=== PATIENT | male | born 1990 | race Caucasian/White ===

== ENCOUNTER → 2016-06-19 | Outpatient (CLI) | payer MEDICAID | LOC: FIMAGING 07:41 | PROVIDERS: ATTEND Internal Medicine | DX: K82.9 Disease of gallbladder, unspecified (principal); R07.81 Pleurodynia | CPT/HCPCS: 84402-90 ==

== ENCOUNTER 2018-02-14 20:36 | Emergency (ER) | payer MEDICAID ==
[2018-02-14 20:43] VITALS: BP 134/83
[2018-02-14] MEDS ORDERED: LORazepam 2 MG/ML INJ IVP ONE (21:02)
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
== END 2018-02-14 21:35 | disposition home or self-care (01) ==
DX: S06.0X0A Concussion without loss of consciousness, initial encounter (principal); V18.0XXA Pedal cycle driver injured in noncollision transport accident in nontraffic accident, initial encounter; F17.200 Nicotine dependence, unspecified, uncomplicated
CPT/HCPCS: 96374